=== PATIENT | male | born 1945 | race Caucasian/White ===

== ENCOUNTER → 2024-05-24 09:43 | Outpatient (CLI) | payer MEDICARE, SELFPAY | PROVIDERS: Visit Provider Physician Assistant | DX: E11.621 Type 2 diabetes mellitus with foot ulcer (principal); L97.522 Non-pressure chronic ulcer of other part of left foot with fat layer exposed; L97.422 Non-pressure chronic ulcer of left heel and midfoot with fat layer exposed; L98.8 Other specified disorders of the skin and subcutaneous tissue; R60.0 Localized edema; M79.672 Pain in left foot; L03.116 Cellulitis of left lower limb; Z79.2 Long term (current) use of antibiotics | CPT/HCPCS: 11042; 11045; 87070; 87077; 87147; 87186; 87205; 99204; 99214 ==

== ENCOUNTER → 2024-05-29 14:47 | Outpatient (CLI) | payer MEDICARE, SELFPAY ==
--- NOTE | 2024-05-29 14:48 | DI.US.S_ITS ---
PROCEDURE: US ARTERIAL DUPLEX LE LT INDICATIONS: LLE DIABETIC ULCERS TECHNIQUE: Color and pulse Doppler interrogation was performed of the left lower extremity arterial system, with image documentation. COMPARISON: None. FINDINGS: Common femoral artery: 82 cm/sec, with triphasic flow. Deep femoral artery: 65 cm/sec, with triphasic flow. Proximal superficial femoral artery: 57 cm/sec, with biphasic flow. Mid superficial femoral artery: 54 cm/sec, with triphasic flow. Distal superficial femoral artery: 20 cm/sec, with monophasic flow. Popliteal artery: Entirety of visualized popliteal artery is occluded without color flow.. Posterior tibial artery: Minimal flow within posterior tibial artery. Anterior tibial artery/dorsalis pedis: 16 cm/sec, with monophasic flow. Hung-scale imaging description: Complete occlusion of the popliteal artery. Mild degree of plaque involving the mid to distal left SFA. IMPRESSION: 1. 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 2. Minimal flow within posterior tibial artery and dampened flow within the anterior tibial artery distal to popliteal artery occlusion. Dictated by: Carlos Noble M.D. on 05/29/2024 at 16:25 Approved by: Carlos Noble M.D. on 05/29/2024 at 16:30
== END ==
LOC: US 14:48
PROVIDERS: PCP Internal Medicine; Referring Provider Physician Assistant; Visit Provider Physician Assistant
DX: E11.621 Type 2 diabetes mellitus with foot ulcer (principal); L97.429 Non-pressure chronic ulcer of left heel and midfoot with unspecified severity; L97.529 Non-pressure chronic ulcer of other part of left foot with unspecified severity; I70.92 Chronic total occlusion of artery of the extremities
CPT/HCPCS: 93926

== ENCOUNTER → 2024-05-31 10:00 | Outpatient (CLI) | payer MEDICARE, SELFPAY | LOC: WC 10:04 | PROVIDERS: PCP Internal Medicine; Visit Provider Physician Assistant | DX: E11.621 Type 2 diabetes mellitus with foot ulcer (principal); L97.522 Non-pressure chronic ulcer of other part of left foot with fat layer exposed; L97.422 Non-pressure chronic ulcer of left heel and midfoot with fat layer exposed; B95.62 Methicillin resistant Staphylococcus aureus infection as the cause of diseases classified elsewhere; M79.672 Pain in left foot; Z79.2 Long term (current) use of antibiotics | CPT/HCPCS: 99213; 99214 ==

== ENCOUNTER → 2024-06-21 13:45 | Outpatient (CLI) | payer MEDICARE, SELFPAY | LOC: WC 13:46 | PROVIDERS: PCP Internal Medicine; Visit Provider Physician Assistant | DX: E11.621 Type 2 diabetes mellitus with foot ulcer (principal); L97.522 Non-pressure chronic ulcer of other part of left foot with fat layer exposed; L97.422 Non-pressure chronic ulcer of left heel and midfoot with fat layer exposed; L53.9 Erythematous condition, unspecified; R23.4 Changes in skin texture | CPT/HCPCS: 99213 ==

== ENCOUNTER → 2024-07-01 13:05 | Outpatient (CLI) | payer MEDICARE, SELFPAY | LOC: WC 13:06 | PROVIDERS: PCP Internal Medicine; Visit Provider Surgery | DX: E11.42 Type 2 diabetes mellitus with diabetic polyneuropathy (principal); E11.621 Type 2 diabetes mellitus with foot ulcer; L97.522 Non-pressure chronic ulcer of other part of left foot with fat layer exposed; L97.422 Non-pressure chronic ulcer of left heel and midfoot with fat layer exposed; L98.8 Other specified disorders of the skin and subcutaneous tissue; I73.9 Peripheral vascular disease, unspecified | CPT/HCPCS: 11042; 11045; 99213 ==

== ENCOUNTER → 2024-07-12 13:04 | Outpatient (CLI) | payer MEDICARE, SELFPAY | PROVIDERS: PCP Internal Medicine; Visit Provider Physician Assistant | DX: E11.621 Type 2 diabetes mellitus with foot ulcer (principal); L97.522 Non-pressure chronic ulcer of other part of left foot with fat layer exposed; L98.8 Other specified disorders of the skin and subcutaneous tissue; R23.4 Changes in skin texture; I73.9 Peripheral vascular disease, unspecified | CPT/HCPCS: 97597; 99213 ==

== ENCOUNTER → 2024-07-19 14:01 | Outpatient (CLI) | payer MEDICARE, SELFPAY | PROVIDERS: PCP Internal Medicine; Visit Provider Physician Assistant | DX: E11.621 Type 2 diabetes mellitus with foot ulcer (principal); L97.522 Non-pressure chronic ulcer of other part of left foot with fat layer exposed; L97.422 Non-pressure chronic ulcer of left heel and midfoot with fat layer exposed; L98.8 Other specified disorders of the skin and subcutaneous tissue; R23.4 Changes in skin texture; I73.9 Peripheral vascular disease, unspecified | CPT/HCPCS: 99213; 99214 ==

== ENCOUNTER → 2024-07-26 13:50 | Outpatient (CLI) | payer MEDICARE, SELFPAY | PROVIDERS: PCP Internal Medicine; Visit Provider Physician Assistant | DX: E11.621 Type 2 diabetes mellitus with foot ulcer (principal); L97.522 Non-pressure chronic ulcer of other part of left foot with fat layer exposed; R23.4 Changes in skin texture; L97.422 Non-pressure chronic ulcer of left heel and midfoot with fat layer exposed; L98.8 Other specified disorders of the skin and subcutaneous tissue | CPT/HCPCS: 97597; 99213 ==

== ENCOUNTER → 2024-08-02 14:07 | Outpatient (CLI) | payer MEDICARE, SELFPAY | PROVIDERS: PCP Internal Medicine; Visit Provider Physician Assistant | DX: E11.621 Type 2 diabetes mellitus with foot ulcer (principal); L97.522 Non-pressure chronic ulcer of other part of left foot with fat layer exposed; L97.422 Non-pressure chronic ulcer of left heel and midfoot with fat layer exposed; L98.8 Other specified disorders of the skin and subcutaneous tissue; R23.4 Changes in skin texture; I73.9 Peripheral vascular disease, unspecified; I10 Essential (primary) hypertension | CPT/HCPCS: 11042 ==

== ENCOUNTER → 2024-08-16 14:19 | Outpatient (CLI) | payer MEDICARE, SELFPAY | PROVIDERS: PCP Internal Medicine; Visit Provider Physician Assistant | DX: E11.621 Type 2 diabetes mellitus with foot ulcer (principal); L97.522 Non-pressure chronic ulcer of other part of left foot with fat layer exposed; L97.422 Non-pressure chronic ulcer of left heel and midfoot with fat layer exposed; L98.8 Other specified disorders of the skin and subcutaneous tissue; I10 Essential (primary) hypertension; I73.9 Peripheral vascular disease, unspecified | CPT/HCPCS: 11042; 87070; 87075; 87077; 87147; 87186; 87205; 99213 ==

== ENCOUNTER → 2024-08-30 13:11 | Outpatient (CLI) | payer MEDICARE, SELFPAY | PROVIDERS: PCP Internal Medicine; Visit Provider Physician Assistant | DX: E11.621 Type 2 diabetes mellitus with foot ulcer (principal); L97.522 Non-pressure chronic ulcer of other part of left foot with fat layer exposed; L97.422 Non-pressure chronic ulcer of left heel and midfoot with fat layer exposed; L98.8 Other specified disorders of the skin and subcutaneous tissue; I73.9 Peripheral vascular disease, unspecified | CPT/HCPCS: 11042; 99212; 99214 ==

== ENCOUNTER → 2024-09-06 14:14 | Outpatient (CLI) | payer MEDICARE, SELFPAY | PROVIDERS: PCP Internal Medicine; Visit Provider Physician Assistant | DX: E11.621 Type 2 diabetes mellitus with foot ulcer (principal); L97.522 Non-pressure chronic ulcer of other part of left foot with fat layer exposed; L97.422 Non-pressure chronic ulcer of left heel and midfoot with fat layer exposed; E11.622 Type 2 diabetes mellitus with other skin ulcer; L97.821 Non-pressure chronic ulcer of other part of left lower leg limited to breakdown of skin; I73.9 Peripheral vascular disease, unspecified | CPT/HCPCS: 11042; 99214 ==

== ENCOUNTER → 2024-09-20 12:40 | Outpatient (CLI) | payer MEDICARE, SELFPAY | PROVIDERS: PCP Internal Medicine; Visit Provider Physician Assistant | DX: E11.621 Type 2 diabetes mellitus with foot ulcer (principal); L97.522 Non-pressure chronic ulcer of other part of left foot with fat layer exposed; L97.422 Non-pressure chronic ulcer of left heel and midfoot with fat layer exposed; E11.622 Type 2 diabetes mellitus with other skin ulcer; L97.822 Non-pressure chronic ulcer of other part of left lower leg with fat layer exposed | CPT/HCPCS: 11042; 99214 ==

== ENCOUNTER → 2024-10-04 11:15 | Outpatient (CLI) | payer MEDICARE, SELFPAY | LOC: WC 11:16 | PROVIDERS: PCP Internal Medicine; Visit Provider Physician Assistant | DX: E11.621 Type 2 diabetes mellitus with foot ulcer (principal); E11.622 Type 2 diabetes mellitus with other skin ulcer; L97.522 Non-pressure chronic ulcer of other part of left foot with fat layer exposed; L97.822 Non-pressure chronic ulcer of other part of left lower leg with fat layer exposed; E11.40 Type 2 diabetes mellitus with diabetic neuropathy, unspecified; E11.51 Type 2 diabetes mellitus with diabetic peripheral angiopathy without gangrene; L53.8 Other specified erythematous conditions; R60.0 Localized edema; Z86.14 Personal history of Methicillin resistant Staphylococcus aureus infection | CPT/HCPCS: 11042; 87070; 87075; 87077; 87147; 87186; 87205 ==

== ENCOUNTER → 2024-10-04 12:13 | Outpatient (CLI) | payer MEDICARE, SELFPAY ==
--- NOTE | 2024-10-04 12:14 | DI.RAD.S_ITS ---
PROCEDURE: XR FOOT LT MIN 3V INDICATIONS: possilbe osteomylitis TECHNIQUE: 3 views of the foot were acquired. COMPARISON: None. FINDINGS: Bones: No fractures or dislocations. No suspicious bony lesions. Calcaneal enthesopathy. Soft tissues: No tibiotalar joint effusion. Achilles tendon appears normal. Vascular calcifications indicate atherosclerosis. IMPRESSION: Although no bony erosions are identified, plain film radiography is relatively insensitive in the acute phases of osteomyelitis and may not demonstrate radiographic changes for 15 days. If acute osteomyelitis is of clinical concern, nuclear medicine regional bone scan or MRI is recommended. Dictated by: Fer Law [facility] Interpreted: Luz Marina Stewart MD on 10/05/2024 at 7:57 Approved by: Luz Marina Stewart M.D. on 10/11/2024 at 17:06
== END ==
PROVIDERS: PCP Internal Medicine; Referring Provider Physician Assistant; Visit Provider Physician Assistant
DX: E11.621 Type 2 diabetes mellitus with foot ulcer (principal); L97.529 Non-pressure chronic ulcer of other part of left foot with unspecified severity; M77.32 Calcaneal spur, left foot
CPT/HCPCS: 73630; 87070; 87077; 87147; 87186; 87205

== ENCOUNTER → 2024-10-11 14:49 | Outpatient (CLI) | payer MEDICARE, SELFPAY | LOC: WC 14:51 | PROVIDERS: PCP Internal Medicine; Visit Provider Physician Assistant | DX: E11.621 Type 2 diabetes mellitus with foot ulcer (principal); E11.622 Type 2 diabetes mellitus with other skin ulcer; L97.522 Non-pressure chronic ulcer of other part of left foot with fat layer exposed; L97.822 Non-pressure chronic ulcer of other part of left lower leg with fat layer exposed; E11.40 Type 2 diabetes mellitus with diabetic neuropathy, unspecified; E11.51 Type 2 diabetes mellitus with diabetic peripheral angiopathy without gangrene; L53.8 Other specified erythematous conditions; R60.0 Localized edema; Z86.14 Personal history of Methicillin resistant Staphylococcus aureus infection | CPT/HCPCS: 11042; 97597; 99214 ==

== ENCOUNTER → 2024-10-18 14:50 | Outpatient (CLI) | payer MEDICARE, SELFPAY | LOC: WC 14:51 | PROVIDERS: PCP Internal Medicine; Visit Provider Physician Assistant | DX: E11.621 Type 2 diabetes mellitus with foot ulcer (principal); L97.522 Non-pressure chronic ulcer of other part of left foot with fat layer exposed; I96 Gangrene, not elsewhere classified; Z86.14 Personal history of Methicillin resistant Staphylococcus aureus infection; I73.9 Peripheral vascular disease, unspecified; R60.0 Localized edema | CPT/HCPCS: 11042; 99213 ==

== ENCOUNTER → 2024-10-25 13:13 | Outpatient (CLI) | payer MEDICARE, SELFPAY | LOC: WC 13:13 | PROVIDERS: PCP Internal Medicine; Visit Provider Physician Assistant | DX: E11.621 Type 2 diabetes mellitus with foot ulcer (principal); L97.528 Non-pressure chronic ulcer of other part of left foot with other specified severity; R60.0 Localized edema; L98.8 Other specified disorders of the skin and subcutaneous tissue; I10 Essential (primary) hypertension | CPT/HCPCS: 11043; 99213 ==

== ENCOUNTER → 2024-11-08 13:14 | Outpatient (CLI) | payer MEDICARE, SELFPAY ==
--- NOTE | 2024-11-08 | OV.WND_ITS ---
PROGRESS NOTE DETAILS PATIENT NAME: MICHELET NEFF PATIENT NUMBER: [id number] CLINICIAN: MEREDITH RAMOS RN PATIENT DATE OF : 1945 PHYSICIAN / INSURANCE SALES REPRESENTATIVE: EDI GERARD PA-C PATIENT SUBJECTIVE CHIEF COMPLAINT THIS INFORMATION WAS OBTAINED FROM THE PATIENT. I HAVEN'T NOTICE AN INCREASE IN DRAINAGE (FROM THE WOUND.) GENERAL NOTES DIABETIC ULCERS ON LEFT FOOT ALLERGIES NO KNOWN ALLERGIES HPI THIS INFORMATION WAS OBTAINED FROM THE PATIENT. LOCATION: LEFT 2ND TOE DURATION: 03/23/24 CONTEXT: DFU THE PATIENT IS A 79 YEAR OLD MALE WITH PMH OF DMT2, HTN, VASCULAR DISEASE, NEUROPATHY PRESENTS FOR ULCER ON LEFT 2ND TOE. ALL OTHER WOUNDS TO THE LEFT FOOT ARE NOW HEALED. THE PATIENT ORIGINALLY HAD AN ARTERIAL US SHOWING FULL BLOCKAGE TO POPLITEAL ARTERY AND REDUCED FLOW TO TIBIAL ARTERY. ON June THE PATIENT UNDERWENT VASCULAR INTERVENTION WITH A GRAFT AND STENT AND WAS DISCHARGED HOME ON [place]. HE UNDERWENT ANOTHER REVASCULARIZATION IN OCTOBER. THE PATIENT HAS BEEN RECEIVING DRESSING CHANGES WITH HYDROFERA BLUE TO HIS WOUNDS. HE IS NOT CURRENTLY ON ANTIBIOTIC THERAPY. HE DENIES FEVERS OR CHILLS. HE PREVIOUSLY HAD AN XRAY DONE THAT REPORTEDLY SHOWED NO SIGN OF OSTEOMYELITIS. HE WANTS TO DELAY TREATMENT WITH HBO AND AMPUTATION TO ASSESS RESPONSE TO RECENT REVASCULARIZATION FIRST. ON EXAM TODAY, WOUND TO 2ND TOE IS IMPROVING. ALL OTHER WOUNDS REMAIN HEALED. LABS: 10/05/24: CULTURE STAPH AUREUS, RX KEFLEX 10/04/24: XRAY 08/18/24: CULTURE MODERATE STAPH AUREUS, RX KEFLEX 05/29/24: ARTERIAL US COMPLETE OCCLUSION POPLITEAL ARTERY, MINIMAL FLOW WITHIN POSTERIOR TIBIAL ARTERY AND DAMPENED FLOW WITHIN THE ANTERIOR TIBIAL ARTERY DISTAL TO POPLITEAL ARTERY OCCLUSION 05/24/24: CULTURE MRSA, RX DOXYCYCLINE 05/24/24: MADHURI LEFT AND RIGHT PAD 05/10/24: XRAY NEGATIVE FOR OSTEO 05/10/24: A1C 7.4 FAMILY HISTORY THIS INFORMATION WAS OBTAINED FROM THE PATIENT. SOCIAL HISTORY MICHELET NEFF [id number] 1945 THIS INFORMATION WAS OBTAINED FROM THE PATIENT. NEVER SMOKER ALCOHOL USE: OCCASIONAL CAFFEINE USE: 1 CUP/DAY CHILDREN LIVES IN: OWN HOME MARITAL STATUS: RETIRED: [employer] MEDICAL HISTORY THIS INFORMATION WAS OBTAINED FROM THE CHART, PATIENT. PATIENT HAS A MEDICAL HISTORY OF: HYPERTENSION GASTRO ESOPH. 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 YES? COMPLETE ALL QUESTIONS.: NO SURGICAL HISTORY THIS INFORMATION WAS OBTAINED FROM THE PATIENT. PATIENT HAS A SURGICAL HISTORY OF: VASCULAR PROCEDURE- (2023) TURP- (2009) REVIEW OF SYSTEMS (ROS) THIS INFORMATION WAS OBTAINED FROM THE PATIENT. COMPLAINTS AND SYMPTOMS PATIENT DENIES COM PLAINTS OR SY M PTOM S RELATED TO: GENERAL NOTES OBJECTIVE MICHELET NEFF [id number] 1945 VITALS HEIGHT/LENGTH: 67 IN (170.18 CM), WEIGHT: 168.2 LBS (76.45 KGS), BMI: 26.3, TEMPERATURE: 98.9 ?F (37.17 ?C), PULSE: 89 BPM, RESPIRATORY RATE: 16 BREATHS/MIN, BLOOD PRESSURE: 154/100 MMHG, PULSE OXIMETRY: 98 %. GENERAL NOTES BLOOD GLUCOSE PER PT :167 PHYSICAL EXAM CONSTITUTIONAL: GENERALIZED WEAKNESS. IN NO APPARENT DISTRESS. GOOD ATTENTION TO HYGIENE AND BODY HABITS. ALERT AND ORIENTED X 3. WELL NOURISHED. VITAL SIGNS REVIEWED AND NOTED. HYPERTENSIVE. PULSE RATE AND RHYTHM REGULAR. AFEBRILE. WEIGHT WNL. WELL DEVELOPED, WELL NOURISHED, AND IN NO ACUTE DISTRESS. ALERT AND ORIENTED X3. AMBULATES AND IS ABLE TO CHANGE POSITION WITHOUT ASSISTANCE. ALERT AND ORIENTED X 3. RESPIRATORY: EVEN RESPIRATIONS WITHOUT USE OF ACCESSORY MUSCLES. NO INTERCOASTAL RETRACTIONS NOTED. EVEN AND NON LABORED RESPIRATION. CARDIOVASCULAR: SEE LOWER EXTREMITY ASSESSMENT WHEN APPLICABLE. THERE IS NO PERIPHERAL EDEMA, CYANOSIS OR PALLOR. EXTREMITIES ARE WARM AND WELL PERFUSED. CAPILLARY REFILL IS LESS THAN 2 SECONDS. INTEGUMENTARY (HAIR, SKIN): SEE WOUND DESCRIPTION. NEUROLOGICAL: DECREASED LOWER EXTREMITY SENSATION. PSYCHIATRIC: ORIENTATION TO TIME, PLACE AND PERSON: NORMAL AFFECT WITH NORMAL THOUGHT PATTERN. MOOD AND AFFECT: NORMAL AFFECT WITH NORMAL THOUGHT PATTERN. LOWER EXTREMITY ASSESSMENT EDEMA ASSESSMENT: LEFT EXTREMITY: EDEMA IS NOT PRESENT COMPRESSION DEVICE IN USE: NO RIGHT EXTREMITY: EDEMA IS NOT PRESENT COMPRESSION DEVICE IN USE: NO VASCULAR ASSESSMENT LEFT EXTREMITY COLORS, HAIR GROWTH, AND CONDITIONS: EXTREMITY COLOR: PIGMENTED HAIR GROWTH ON EXTREMITY: NO TEMPERATURE OF EXTREMITY: WARM CAPILARY REFILL: < 3 SECONDS ERYTHEMA: YES RIGHT EXTREMITY COLORS, HAIR GROWTH, AND CONDITIONS: EXTREMITY COLOR: WNL HAIR GROWTH ON EXTREMITY: NO TEMPERATURE OF EXTREMITY: WARM CAPILARY REFILL: < 3 SECONDS ERYTHEMA: NO WOUND ASSESSMENT(S) WOUND #1 LEFT TOE - SECOND IS A CHRONIC COBB GRADE 3 DIABETIC ULCER ACQUIRED ON 03/23/2024 AND HAS RECEIVED A STATUS OF NOT HEALED. INITIAL WOUND ENCOUNTER MEASUREMENTS ARE 0.5CM LENGTH X 0.4CM WIDTH X 0.1 CM DEPTH, WITH AN AREA OF 0.2 SQ CM AND A VOLUME OF 0.02 CUBIC CM.INITIAL WOUND ENCOUNTER PREVIOUS MEASUREMENTS FROM 10/25/2024 ARE 0.5CM LENGTH X 0.7CM WIDTH X 0.1CM DEPTH, WITH AN AREA OF 0.35 SQ CM AND A VOLUME OF 0.035 CUBIC CM. NECROTIC TENDON AND ADIPOSE ARE EXPOSED. NO TUNNELING HAS BEEN NOTED. NO SINUS TRACT HAS BEEN NOTED. NO UNDERMINING HAS BEEN NOTED. THERE IS A SMALL AMOUNT OF SEROSANGUINEOUS DRAINAGE NOTED WHICH HAS NO ODOR. THE PATIENT REPORTS A WOUND PAIN OF LEVEL 0/10. THE WOUND MARGIN IS ATTACHED WOUND BED HAS NO, GRANULATION, YES SLOUGH, YES ESCHAR, NO EPITHELIALIZATION. MICHELET NEFF [id number] 1945 THE PERIWOUND SKIN EXHIBITED EDEMA. THE PERIWOUND SKIN DID NOT EXHIBIT BRAWNY INDURATION, EXCORIATION, INDURATION, CALLUS, CREPITUS, FLUCTUANCE, RASH, MACERATION AND ERYTHEMA. THE PERIWOUND SKIN WAS MOIST. THE PERIWOUND SKIN WAS NOT FRIABLE AND DRY/SCALY. THE TEMPERATURE OF THE PERIWOUND SKIN IS WNL. PERIWOUND SKIN DOES NOT EXHIBIT SIGNS OR SYMPTOMS OF INFECTION. LOCAL PULSE IS DOPPLER. ADDITIONAL INFORMATION MADHURI/VASCULAR COMPLETED?: VASCULAR PROCEDURE DONE 10/21/24. ASSESSMENT ACTIVE PROBLEMS ICD-10 (ENCOUNTER DIAGNOSIS) E11.621 - TYPE 2 DIABETES MELLITUS WITH FOOT ULCER (ENCOUNTER DIAGNOSIS) L97.522 - NON-PRESSURE CHRONIC ULCER OF OTHER PART OF LEFT FOOT WITH FAT LAYER EXPOSED (ENCOUNTER DIAGNOSIS) Z86.14 - PERSONAL HISTORY OF METHICILLIN RESISTANT STAPHYLOCOCCUS AUREUS INFECTION (ENCOUNTER DIAGNOSIS) I73.9 - PERIPHERAL VASCULAR DISEASE, UNSPECIFIED PROCEDURES WOUND #1 WOUND #1 (DIABETIC ULCER) IS LOCATED ON THE LEFT TOE - SECOND. A SKIN/SUBCUTANEOUS TISSUE LEVEL SURGICAL DEBRIDEMENT WITH A TOTAL AREA DEBRIDED OF 0.2 SQ CM. WAS PERFORMED BY EDI GERARD PA-C. SUBCUTANEOUS WAS REMOVED ALONG WITH DEVITALIZED TISSUE: BIOFILM, EXUDATE AND SLOUGH. THE FOLLOWING INSTRUMENT(S) WERE USED: CURETTE. PAIN CONTROL WAS ACHIEVED USING EMLA LIDOCAINE/PRILOCAINE 2.5%/2.5%. A TIME OUT WAS CONDUCTED PRIOR TO THE START OF THE PROCEDURE. A MINIMAL AMOUNT OF BLEEDING WAS CONTROLLED WITH PRESSURE. THE PROCEDURE WAS TOLERATED WELL WITH A PAIN LEVEL OF 0 THROUGHOUT AND A PAIN LEVEL OF 0 FOLLOWING THE PROCEDURE. POST DEBRIDEMENT MEASUREMENTS: 0.5CM LENGTH X 0.4CM WIDTH X 0.2CM DEPTH; WITH AN AREA OF 0.2 SQ CM AND A VOLUME OF 0.04 CUBIC CM. ADDITIONAL INFORMATION MUSCLE FASCIA OR BONE REMOVED AND SENT TO PATHOLOGY?: NO PLAN WOUND ORDERS: WOUND #1 LEFT TOE - SECOND HAND HYGIENE HAND HYGIENE - WASH HANDS BEFORE AND AFTER WOUND CARE. CALL THE WOUND CENTER AT [phone] IF YOU HAVE SIGNS OR SYMPTOMS OF INFECTION, FEVER CHILLS OR SHAKES, INCREASED DRAINAGE, INCREASED ODOR OR UNUSUAL REDNESS. AFTER WOUND CENTER HOURS PLEASE NOTIFY YOUR PCP OR GO TO THE EMERGENCY ROOM. CLEANSER CLEANSE WOUND WITH NORMAL SALINE CLEANSE WOUND AND MONIKA WOUND WITH A NON-CYTOTOXIC WOUND CLEANSER. - VASHE. PROCEDURE / ANESTHETIC 5% TOPICAL LIDOCAINE TO WOUND BED PRIOR TO PROCEDURE, IN CLINIC ONLY. DRESSING ORDERS APPLY DRESSING(S) AND SECURE WITH: - CURAD OIL EMULSION GAUZE, THEN HYDROFERA BLUE, SECURED WITH TAPE. DRESSING CHANGE FREQUENCY CHANGE DRESSING EVERY OTHER DAY. MICHELET NEFF [id number] 1945 ADDITIONAL ORDERS: OFF-LOADING / PRESSURE RELIEF USE/WEAR WHEN WALKING: - DIABETIC SHOES. OTHER ORDER: - PREVENT PRESSURE FROM DORSAL FOOT AND DORSAL TOE. DIETARY TAKE VITAMIN C 1000MG BY MOUTH DAILY. TAKE ZINC 25MG BY MOUTH DAILY. INCREASE THE PROTEIN IN YOUR DIET. FOLLOW-UP APPOINTMENTS RETURN APPOINTMENT 2 WEEKS SCRIBING ATTESTATION I ATTEST, THE NURSE, THAT I SCRIBED THESE ORDERS FOR THE WOUND CARE PROVIDER. PROVIDER REVIEW AND ATTESTATION: REVIEWED HOSPITAL RECORDS. DISCUSSED THE PLAN OF CARE @ BEDSIDE WITH - PATIENT AND I AGREE AND ATTEST TO THE ABOVE INFORMATION PROVIDED FROM OTHER LICENSED PROFESSIONALS. PLAN OF CARE: 01. ENSURE/ESTABLISH OPTIMAL BLOOD FLOW : - COMPLETE LOWER EXTREMITY ASSESSMENT STATUS: CONTINUED DATE: 11/08/2024 - PERFORM NON-INVASIVE VASCULAR TESTING (I.E. MADHURI) AND DOCUMENT FINDINGS. CONSIDER REPEATING WHEN WOUND HEALING <40% AFTER 30 DAYS OF WOUND CARE. STATUS: COMPLETED DATE: 05/29/2024 - ORDER VASCULAR CONSULT FOR EVALUATION/TREATMENT AND/OR NON-INVASIVE VASCULAR TESTING. - PROVIDENCE VASCULAR ARTERIAL VASCULAR PROCEDURE. STATUS: COMPLETED DATE: 10/21/2024 02. ASSESS FOR/TREAT INFECTION : - EVALUATE FOR SIGNS AND SYMPTOMS OF INFECTION AND DOCUMENT FINDINGS. STATUS: CONTINUED DATE: 11/08/2024 03. DEBRIDE WEEKLY OR MORE OFTEN PRN : - EVALUATE PATIENT IN CENTER WEEKLY TO ASSESS WOUND BED AND MARGINS FOR NEED FOR DEBRIDEMENT. STATUS: CONTINUED DATE: 11/08/2024 - DEBRIDEMENT BY ANY METHOD TO REMOVE DEVITALIZED/NECROTIC TISSUE TO PROMOTE HEALING AND PREVENT FURTHER COMPLICATIONS. GOAL IS TO STIMULATE AND/OR MAINTAIN ACUTE PHASE OF WOUND HEALING BY REDUCING BACTERIAL BURDEN AND DEVITALIZED/NON-VIABLE TISSUE. STATUS: CONTINUED DATE: 11/08/2024 05. OFFLOADING PLAN : - EVALUATE PLAN FOR OFFLOADING STATUS: CONTINUED DATE: 11/08/2024 - ADVISE PATIENT TO OFFLOAD THE FOOT ULCER. (I.E. HALF SHOE, SURGICAL SHOE, INSERT, CUSTOM SHOE, FELT AND FOAM, CAM WALKER, MULTIPODUS SPLINT, TOTAL CONTACT CAST, BI-VALVE CAST, POSTERIOR SPLINT). - POST-OP SHOE GIVEN, FOOT DEFENDER ORDERED, EHOB GIVEN STATUS: CONTINUED DATE: 11/08/2024 07. DRESSING SELECTION : - EVALUATE FOR DRESSING-RELATED FACTORS, SUCH AVAILABILITY, WEAR TIME, ADAPTABILITY AND USE TO BETTER OPTIMIZE WOUND HEALING AND PATIENT COMPLIANCE. STATUS: CONTINUED DATE: 11/08/2024 09. FALL PREVENTION : - COMPLETE FALL ASSESSMENT. STATUS: CONTINUED DATE: 11/08/2024 10. PAIN MANAGEMENT : - COMPLETE PAIN ASSESSMENT MICHELET NEFF [id number] 1945 STATUS: CONTINUED DATE: 11/08/2024 11. MEASURABLE GOALS FOR WOUND HEALING AND/OR HYPERBARIC OXYGEN THERAPY : - DECREASE PAIN STATUS: CONTINUED DATE: 11/08/2024 - DECREASE WOUND DIMENSIONS STATUS: CONTINUED DATE: 11/08/2024 - WOUND CLOSURE STATUS: CONTINUED DATE: 11/08/2024 12. DURATION/FREQUENCY OF WOUND CARE VISITS : - 2X MONTHLY FOR NEXT 30 DAYS - IN 2 WEEKS. STATUS: CONTINUED DATE: 11/08/2024 DOING WELL CONTINUE WITH CURAD GAUZE, HYDROFERA BLUE RECHECK 2 WEEKS, PER PATIENT PREFERENCE ELECTRONIC SIGNATURE(S) SIGNED BY: DATE: EDI GERARD PA-C 11/11/2024 07:33:39 (PT) ENTERED BY: EDI GERARD PA-C ON 11/11/2024 07:33:28 (PT) MICHELET NEFF [id number] 1945
== END ==
LOC: WC 13:17
PROVIDERS: PCP Internal Medicine; Referring Provider Internal Medicine; Visit Provider Physician Assistant
DX: E11.621 Type 2 diabetes mellitus with foot ulcer (principal); L97.522 Non-pressure chronic ulcer of other part of left foot with fat layer exposed; I96 Gangrene, not elsewhere classified; I73.9 Peripheral vascular disease, unspecified
CPT/HCPCS: 11042; 99213

== ENCOUNTER → 2024-11-22 13:06 | Outpatient (CLI) | payer MEDICARE, SELFPAY | PROVIDERS: PCP Internal Medicine; Visit Provider Physician Assistant | DX: E11.621 Type 2 diabetes mellitus with foot ulcer (principal); L97.522 Non-pressure chronic ulcer of other part of left foot with fat layer exposed; I73.9 Peripheral vascular disease, unspecified; R60.0 Localized edema; E11.40 Type 2 diabetes mellitus with diabetic neuropathy, unspecified; Z86.14 Personal history of Methicillin resistant Staphylococcus aureus infection | CPT/HCPCS: 11042; 99213 ==

== ENCOUNTER → 2024-12-03 16:03 | Outpatient (CLI) | payer MEDICARE, SELFPAY ==
--- NOTE | 2024-12-03 | OV.WND_ITS ---
PROGRESS NOTE DETAILS PATIENT NAME: MICHELET NEFF PATIENT NUMBER: [id number] CLINICIAN: GEETA HUGO R.N. PATIENT DATE OF : 1945 PHYSICIAN / PHOTOGRAPHIC PROCESS SCREEN MAKER: DANIEL TARIQ PATIENT SUBJECTIVE CHIEF COMPLAINT THIS INFORMATION WAS OBTAINED FROM THE PATIENT. I HAVEN'T NOTICED ANY DRAINAGE, I LEFT THE DRESSING OFF TODAY. GENERAL NOTES DIABETIC ULCER ON LEFT FOOT. ALLERGIES NO KNOWN ALLERGIES HPI THIS INFORMATION WAS OBTAINED FROM THE PATIENT. THE FOLLOWING HPI ELEMENTS WERE DOCUMENTED FOR THE PATIENT'S WOUND: LOCATION: LEFT 2ND TOE DURATION: 03/23/24 CONTEXT: DFU THE PATIENT IS A 79 YEAR OLD MALE WITH DMT2, HTN, VASCULAR DISEASE, NEUROPATHY RETURNS TODAY FOR FOLLOW UP OF ULCER ON LEFT 2ND TOE. ALL OTHER ULCERS ON THE LEFT FOOT REMAIN HEALED. THE PATIENT ORIGINALLY HAD AN ARTERIAL US SHOWING FULL BLOCKAGE TO POPLITEAL ARTERY AND REDUCED FLOW TO TIBIAL ARTERY. ON June THE PATIENT UNDERWENT VASCULAR INTERVENTION WITH A GRAFT AND STENT AND WAS DISCHARGED HOME ON X[place]EL[place]. HE UNDERWENT ANOTHER REVASCULARIZATION IN OCTOBER. THE PATIENT HAS BEEN RECEIVING DRESSING CHANGES WITH HYDROFERA BLUE. HE IS NOT CURRENTLY ON ANTIBIOTIC THERAPY. HE DENIES FEVERS OR CHILLS. HE PREVIOUSLY HAD AN XRAY DONE THAT REPORTEDLY SHOWED NO SIGN OF OSTEOMYELITIS. HE WANTS TO DELAY TREATMENT WITH HBO AND AMPUTATION TO ASSESS RESPONSE TO RECENT REVASCULARIZATION FIRST. ON EXAM TODAY THE ULCER ON THE DORSUM OF THE LEFT 2ND TOE APPEARS TO BE STALLED AND EXTENDS TO BONE. ALL OTHER ULCERS REMAIN HEALED. LABS: 10/05/24: CULTURE STAPH AUREUS, RX KEFLEX 10/04/24: XRAY NEGATIVE FOR OSTEOMYELITIS 08/18/24: CULTURE MODERATE STAPH AUREUS, RX KEFLEX 05/29/24: ARTERIAL US COMPLETE OCCLUSION POPLITEAL ARTERY, MINIMAL FLOW WITHIN POSTERIOR TIBIAL ARTERY AND DAMPENED FLOW WITHIN THE ANTERIOR TIBIAL ARTERY DISTAL TO POPLITEAL ARTERY OCCLUSION 05/24/24: CULTURE MRSA, RX DOXYCYCLINE 05/24/24: MADHURI LEFT AND RIGHT PAD 05/10/24: XRAY NEGATIVE FOR OSTEO 05/10/24: A1C 7.4 FAMILY HISTORY THIS INFORMATION WAS OBTAINED FROM THE PATIENT. MICHELET NEFF [id number] 1945 SOCIAL HISTORY THIS INFORMATION WAS OBTAINED FROM THE PATIENT. NEVER SMOKER ALCOHOL USE: OCCASIONAL CAFFEINE USE: 1 CUP/DAY CHILDREN LIVES IN: OWN HOME MARITAL STATUS: RETIRED: [employer] WORK[employer] MEDICAL HISTORY THIS INFORMATION WAS OBTAINED FROM THE CHART, PATIENT. PATIENT HAS A MEDICAL HISTORY OF: HYPERTENSION GASTRO ESOPH. 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 YES? COMPLETE ALL QUESTIONS.: NO SURGICAL HISTORY THIS INFORMATION WAS OBTAINED FROM THE PATIENT. PATIENT HAS A SURGICAL HISTORY OF: VASCULAR PROCEDURE- (2023) TURP- (2009) REVIEW OF SYSTEMS (ROS) THIS INFORMATION WAS OBTAINED FROM THE PATIENT. COMPLAINTS AND SYMPTOMS PATIENT COM PLAINS OF: CO-MORBID CONDITIONS: DIABETES, NEUROPATHY , PERIPHERAL ARTERIAL DISEASE PRIOR WOUND HISTORY: DRAINAGE PATIENT DENIES COM PLAINTS OR SY M PTOM S RELATED TO: MICHELET NEFF [id number] 1945 GENERAL NOTES CARDIOVASCULAR (CENTRAL): CHEST PAIN, DYSPNEA ON EXERTION CONSTITUTIONAL SYMPTOMS (GENERAL HEALTH): CHILLS, FEVER, LOSS OF APPETITE PRIOR WOUND HISTORY: BLEEDING, ERYTHEMA, MALODOR, PAIN RESPIRATORY: COUGH, SHORTNESS OF BREATH OBJECTIVE VITALS HEIGHT/LENGTH: 67 IN (170.18 CM), WEIGHT: 168.2 LBS (76.45 KGS), BMI: 26.3, TEMPERATURE: 97.4 ?F (36.33 ?C), PULSE: 94 BPM, RESPIRATORY RATE: 16 BREATHS/MIN, BLOOD PRESSURE: 158/74 MMHG, PULSE OXIMETRY: 98 %. GENERAL NOTES CBG PER PT: 217 PHYSICAL EXAM CONSTITUTIONAL: VITAL SIGNS REVIEWED AND NOTED. WELL DEVELOPED, WELL NOURISHED, AND IN NO ACUTE DISTRESS. ALERT AND ORIENTED X3. RESPIRATORY: EVEN RESPIRATIONS WITHOUT USE OF ACCESSORY MUSCLES. NO INTERCOASTAL RETRACTIONS NOTED. EVEN AND NON LABORED RESPIRATION. INTEGUMENTARY (HAIR, SKIN): NO ERYTHEMA. NO SWELLING OR TENDERNESS. SEE WOUND ASSESSMENT. SKIN WARM AND DRY. NO RASHES. NEUROLOGICAL: DECREASED LOWER EXTREMITY SENSATION. PSYCHIATRIC: ORIENTATION TO TIME, PLACE AND PERSON: NORMAL AFFECT WITH NORMAL THOUGHT PATTERN. ADDITIONAL INFORMATION THE PATIENT'S POTENTIAL TO HEAL IS: FAIR. LOWER EXTREMITY ASSESSMENT ASSESSMENT NOT PERFORMED FOR DOCUMENTED REASONS. EDEMA ASSESSMENT: LEFT EXTREMITY: EDEMA IS NOT PRESENT COMPRESSION DEVICE IN USE: NO RIGHT EXTREMITY: EDEMA IS NOT PRESENT COMPRESSION DEVICE IN USE: NO VASCULAR ASSESSMENT LEFT EXTREMITY COLORS, HAIR GROWTH, AND CONDITIONS: EXTREMITY COLOR: PIGMENTED HAIR GROWTH ON EXTREMITY: NO TEMPERATURE OF EXTREMITY: WARM CAPILARY REFILL: < 3 SECONDS ERYTHEMA: YES RIGHT EXTREMITY COLORS, HAIR GROWTH, AND CONDITIONS: EXTREMITY COLOR: WNL HAIR GROWTH ON EXTREMITY: NO TEMPERATURE OF EXTREMITY: WARM CAPILARY REFILL: < 3 SECONDS ERYTHEMA: NO OFF-LOADING: LEFT OFF-LOADING DEVICE IN USE: YES DEVICE USED CORRECTLY: YES MICHELET NEFF [id number] 1945 OFF-LOADNG DEVICE USED: YES RIGHT OFF-LOADING DEVICE IN USE: NO WOUND ASSESSMENT(S) WOUND #1 LEFT TOE - SECOND IS A CHRONIC COBB GRADE 3 DIABETIC ULCER ACQUIRED ON 03/23/2024 AND HAS RECEIVED A STATUS OF NOT HEALED. INITIAL WOUND ENCOUNTER MEASUREMENTS ARE 0.3CM LENGTH X 0.4CM WIDTH X 0.1 CM DEPTH, WITH AN AREA OF 0.12 SQ CM AND A VOLUME OF 0.012 CUBIC CM.INITIAL WOUND ENCOUNTER PREVIOUS MEASUREMENTS FROM 11/22/2024 ARE 0.4CM LENGTH X 0.3CM WIDTH X 0.1CM DEPTH, WITH AN AREA OF 0.12 SQ CM AND A VOLUME OF 0.012 CUBIC CM. BONE AND ADIPOSE ARE EXPOSED. NO TUNNELING HAS BEEN NOTED. NO SINUS TRACT HAS BEEN NOTED. NO UNDERMINING HAS BEEN NOTED. THERE IS A SMALL AMOUNT OF PURULENT DRAINAGE NOTED WHICH HAS NO ODOR. THE PATIENT REPORTS A WOUND PAIN OF LEVEL 0/10. THE WOUND MARGIN IS ATTACHED WOUND BED HAS NO, GRANULATION, YES SLOUGH, NO ESCHAR, NO EPITHELIALIZATION. THE PERIWOUND SKIN EXHIBITED EDEMA. THE PERIWOUND SKIN DID NOT EXHIBIT BRAWNY INDURATION, EXCORIATION, INDURATION, CALLUS, CREPITUS, FLUCTUANCE, RASH, MACERATION AND ERYTHEMA. THE PERIWOUND SKIN WAS MOIST. THE PERIWOUND SKIN WAS NOT FRIABLE AND DRY/SCALY. THE TEMPERATURE OF THE PERIWOUND SKIN IS WNL. PERIWOUND SKIN DOES NOT EXHIBIT SIGNS OR SYMPTOMS OF INFECTION. LOCAL PULSE IS DOPPLER. GENERAL NOTES PROBES TO BONE. ADDITIONAL INFORMATION OTHER DEVITALIZED TISSUE PRESENT: BIOFILM MADHURI/VASCULAR COMPLETED?: VASCULAR PROCEDURE DONE 10/21/24. ASSESSMENT ACTIVE PROBLEMS ICD-10 (ENCOUNTER DIAGNOSIS) E11.621 - TYPE 2 DIABETES MELLITUS WITH FOOT ULCER (ENCOUNTER DIAGNOSIS) L97.522 - NON-PRESSURE CHRONIC ULCER OF OTHER PART OF LEFT FOOT WITH FAT LAYER EXPOSED (ENCOUNTER DIAGNOSIS) Z86.14 - PERSONAL HISTORY OF METHICILLIN RESISTANT STAPHYLOCOCCUS AUREUS INFECTION (ENCOUNTER DIAGNOSIS) I73.9 - PERIPHERAL VASCULAR DISEASE, UNSPECIFIED GENERAL NOTES ULCER DORSUM OF LEFT 2ND TOE THE FOLLOWING FACTORS HAVE BEEN IDENTIFIED THAT MAY AFFECT WOUND HEALING: DEVITALIZED TISSUE BIOFILM DIABETES NEUROPATHY PAD PRESSURE GOALS: REMOVE DEVITALIZED TISSUE REMOVE AND PREVENT BIOFILM REDUCE PRESSURE PREVENT INFECTION WOUND CLOSURE PLAN: DEBRIDEMENT, WOUND CULTURE OBTAINED TODAY, ORDER MRI LEFT FOOT TO RULE OUT OSTEOMYELITIS, SWITCH TO DRESSING CHANGES WITH SILVER COLLAGEN, SUBMIT FOR USE OF SKIN SUBSTITUTES, FOLLOW UP IN 1 WEEK FOR MICHELET ECHOLS [id number] 1945 RECHECK. START PROTEIN SUPPLEMENTATION, VITAMIN-C, AND ZINC. PROCEDURES WOUND #1 WOUND #1 (DIABETIC ULCER) IS LOCATED ON THE LEFT TOE - SECOND. A SKIN/SUBCUTANEOUS TISSUE LEVEL SURGICAL DEBRIDEMENT WITH A TOTAL AREA DEBRIDED OF 0.12 SQ CM. WAS PERFORMED BY DANIEL TARIQ MD. SUBCUTANEOUS WAS REMOVED ALONG WITH DEVITALIZED TISSUE: BIOFILM AND SLOUGH. THE FOLLOWING INSTRUMENT(S) WERE USED: CURETTE. PAIN CONTROL WAS ACHIEVED USING EMLA LIDOCAINE/PRILOCAINE 2.5%/2.5%. A TIME OUT WAS CONDUCTED PRIOR TO THE START OF THE PROCEDURE. A MINIMAL AMOUNT OF BLEEDING WAS CONTROLLED WITH PRESSURE. THE PROCEDURE WAS TOLERATED WELL WITH A PAIN LEVEL OF 0 THROUGHOUT AND A PAIN LEVEL OF 0 FOLLOWING THE PROCEDURE. POST DEBRIDEMENT MEASUREMENTS: 0.3CM LENGTH X 0.4CM WIDTH X 0.2CM DEPTH; WITH AN AREA OF 0.12 SQ CM AND A VOLUME OF 0.024 CUBIC CM. ADDITIONAL INFORMATION MUSCLE FASCIA OR BONE REMOVED AND SENT TO PATHOLOGY?: NO PLAN WOUND ORDERS: WOUND #1 LEFT TOE - SECOND HAND HYGIENE HAND HYGIENE - WASH HANDS BEFORE AND AFTER WOUND CARE. CALL THE WOUND CENTER AT [phone] IF YOU HAVE SIGNS OR SYMPTOMS OF INFECTION, FEVER CHILLS OR SHAKES, INCREASED DRAINAGE, INCREASED ODOR OR UNUSUAL REDNESS. AFTER WOUND CENTER HOURS PLEASE NOTIFY YOUR PCP OR GO TO THE EMERGENCY ROOM. CLEANSER CLEANSE WOUND WITH NORMAL SALINE CLEANSE WOUND AND MONIKA WOUND WITH A NON-CYTOTOXIC WOUND CLEANSER. - VASHE. PROCEDURE / ANESTHETIC 5% TOPICAL LIDOCAINE TO WOUND BED PRIOR TO PROCEDURE, IN CLINIC ONLY. DRESSING ORDERS APPLY DRESSING(S) AND SECURE WITH: - PURACOL PLUS AG MOISTENED WITH NORMAL SALINE OR DISTILLED WATER. THEN COVER WITH OPTIFOAM (PINK SIDE OUT AWAY FROM SKIN), SECURED WITH TAPE. DRESSING CHANGE FREQUENCY CHANGE DRESSING EVERY OTHER DAY. ADDITIONAL ORDERS: OFF-LOADING / PRESSURE RELIEF USE/WEAR WHEN WALKING: - DIABETIC SHOES. OTHER ORDER: - PREVENT PRESSURE FROM DORSAL FOOT AND DORSAL TOE. DIETARY TAKE VITAMIN C 1000MG BY MOUTH DAILY. TAKE ZINC 25MG BY MOUTH DAILY. INCREASE THE PROTEIN IN YOUR DIET. FOLLOW-UP APPOINTMENTS RETURN APPOINTMENT 2 WEEKS SCRIBING ATTESTATION I ATTEST, THE NURSE, THAT I SCRIBED THESE ORDERS FOR THE WOUND CARE PROVIDER. PROVIDER REVIEW AND ATTESTATION: REVIEWED HOSPITAL RECORDS. DISCUSSED THE PLAN OF CARE @ BEDSIDE WITH - PATIENT AND I AGREE AND ATTEST TO THE ABOVE INFORMATION PROVIDED FROM OTHER LICENSED PROFESSIONALS. ANCILLARY SERVICES: RADIOLOGY: MICHELET NEFF [id number] 1945 MRI - PLEASE CALL TO SCHEDULE MRI AT [facility] IN [place]: [phone]. ORDER WILL BE SENT TODAY. PLAN OF CARE: 01. ENSURE/ESTABLISH OPTIMAL BLOOD FLOW : - COMPLETE LOWER EXTREMITY ASSESSMENT STATUS: CONTINUED DATE: 12/03/2024 - PERFORM NON-INVASIVE VASCULAR TESTING (I.E. MADHURI) AND DOCUMENT FINDINGS. CONSIDER REPEATING WHEN WOUND HEALING <40% AFTER 30 DAYS OF WOUND CARE. STATUS: COMPLETED DATE: 05/29/2024 - ORDER VASCULAR CONSULT FOR EVALUATION/TREATMENT AND/OR NON-INVASIVE VASCULAR TESTING. - [place] VASCULAR ARTERIAL VASCULAR PROCEDURE. STATUS: COMPLETED DATE: 10/21/2024 02. ASSESS FOR/TREAT INFECTION : - EVALUATE FOR SIGNS AND SYMPTOMS OF INFECTION AND DOCUMENT FINDINGS. STATUS: CONTINUED DATE: 12/03/2024 03. DEBRIDE WEEKLY OR MORE OFTEN PRN : - EVALUATE PATIENT IN CENTER WEEKLY TO ASSESS WOUND BED AND MARGINS FOR NEED FOR DEBRIDEMENT. STATUS: CONTINUED DATE: 12/03/2024 - DEBRIDEMENT BY ANY METHOD TO REMOVE DEVITALIZED/NECROTIC TISSUE TO PROMOTE HEALING AND PREVENT FURTHER COMPLICATIONS. GOAL IS TO STIMULATE AND/OR MAINTAIN ACUTE PHASE OF WOUND HEALING BY REDUCING BACTERIAL BURDEN AND DEVITALIZED/NON-VIABLE TISSUE. STATUS: CONTINUED DATE: 12/03/2024 04. OPTIMIZE GLUCOSE CONTROL AND NUTRITION : - ORDER/REVIEW PERTINENT LABS TO EVALUATE RENAL FUNCTION, GLUCOSE CONTROL, AND NUTRITIONAL STATUS. STATUS: CONTINUED DATE: 12/03/2024 05. OFFLOADING PLAN : - EVALUATE PLAN FOR OFFLOADING STATUS: CONTINUED DATE: 12/03/2024 - ADVISE PATIENT TO OFFLOAD THE FOOT ULCER. (I.E. HALF SHOE, SURGICAL SHOE, INSERT, CUSTOM SHOE, FELT AND FOAM, CAM WALKER, MULTIPODUS SPLINT, TOTAL CONTACT CAST, BI-VALVE CAST, POSTERIOR SPLINT). - POST-OP SHOE GIVEN, FOOT DEFENDER ORDERED, EHOB GIVEN STATUS: CONTINUED DATE: 12/03/2024 07. DRESSING SELECTION : - EVALUATE FOR DRESSING-RELATED FACTORS, SUCH AVAILABILITY, WEAR TIME, ADAPTABILITY AND USE TO BETTER OPTIMIZE WOUND HEALING AND PATIENT COMPLIANCE. STATUS: CONTINUED DATE: 12/03/2024 09. FALL PREVENTION : - COMPLETE FALL ASSESSMENT. STATUS: CONTINUED DATE: 12/03/2024 10. PAIN MANAGEMENT : - COMPLETE PAIN ASSESSMENT STATUS: CONTINUED DATE: 12/03/2024 11. MEASURABLE GOALS FOR WOUND HEALING AND/OR HYPERBARIC OXYGEN THERAPY : - DECREASE PAIN STATUS: CONTINUED DATE: 12/03/2024 - DECREASE WOUND DIMENSIONS STATUS: CONTINUED DATE: 12/03/2024 - WOUND CLOSURE STATUS: CONTINUED DATE: 12/03/2024 12. DURATION/FREQUENCY OF WOUND CARE VISITS : MICHELET NEFF [id number] 1945 - 2X MONTHLY FOR NEXT 30 DAYS - IN 2 WEEKS. STATUS: CONTINUED DATE: 12/03/2024 ELECTRONIC SIGNATURE(S) SIGNED BY: DATE: DANIEL TARIQ MD 12/03/2024 16:43:19 (PT) ENTERED BY: DANIEL TARIQ MD ON 12/03/2024 16:42:24 (PT) MICHELET NEFF [id number] 1945
== END ==
PROVIDERS: PCP Internal Medicine; Referring Provider Internal Medicine; Visit Provider Surgery
DX: E11.621 Type 2 diabetes mellitus with foot ulcer (principal); L97.522 Non-pressure chronic ulcer of other part of left foot with fat layer exposed; I73.9 Peripheral vascular disease, unspecified; R60.0 Localized edema; E11.40 Type 2 diabetes mellitus with diabetic neuropathy, unspecified; Z86.14 Personal history of Methicillin resistant Staphylococcus aureus infection
CPT/HCPCS: 11042; 99213

== ENCOUNTER → 2024-12-20 10:50 | Outpatient (CLI) | payer MEDICARE, SELFPAY ==
--- NOTE | 2024-12-20 | OV.WND_ITS ---
PROGRESS NOTE DETAILS PATIENT NAME: MICHELET NEFF PATIENT NUMBER: [id number] CLINICIAN: MEREDITH RAMOS RN PATIENT DATE OF : 1945 PHYSICIAN / SHAPER SETTER: EDI GERARD PA-C PATIENT SUBJECTIVE CHIEF COMPLAINT THIS INFORMATION WAS OBTAINED FROM THE PATIENT. I HAVE THE SAME AMOUNT OF PAIN ( LAST VISIT) GENERAL NOTES DIABETIC ULCER ON LEFT FOOT. ALLERGIES NO KNOWN ALLERGIES HPI THIS INFORMATION WAS OBTAINED FROM THE PATIENT. LOCATION: LEFT 2ND TOE DURATION: 03/23/24 CONTEXT: DFU THE PATIENT IS A 79 YEAR OLD MALE WITH DMT2, HTN, VASCULAR DISEASE, NEUROPATHY RETURNS TODAY FOR FOLLOW UP OF ULCER ON LEFT 2ND TOE. ALL OTHER ULCERS ON THE LEFT FOOT REMAIN HEALED. THE PATIENT ORIGINALLY HAD AN ARTERIAL US SHOWING FULL BLOCKAGE TO POPLITEAL ARTERY AND REDUCED FLOW TO TIBIAL ARTERY. ON June THE PATIENT UNDERWENT VASCULAR INTERVENTION WITH A GRAFT AND STENT AND WAS DISCHARGED HOME ON [place]. HE UNDERWENT ANOTHER REVASCULARIZATION IN OCTOBER. THE PATIENT HAS BEEN RECEIVING DRESSING CHANGES MOST RECENTLY WITH SILVER COLLAGEN. HE IS NOT CURRENTLY ON ANTIBIOTIC THERAPY. HE DENIES FEVERS OR CHILLS. PATIENT'S WOUND HAS BEEN PROBING TO BONE AND HE HAD AN MRI A FEW DAYS AGO BUT WE DO NOT CURRENTLY HAVE RESULTS. PATIENT HAS DECIDED THAT HE WOULD LIKE TO PROCEED WITH TOE AMPUTATION RATHER THAN CONTINUE TREATING IN STANDARD WOUND CARE OR FOLLOWING UP WITH VASCULAR. HE REQUESTS A REFERRAL TO LOCAL SURGICAL TEAM DUE TO TRANSPORTATION DIFFICULTY. ON EXAM TODAY THE ULCER ON THE DORSUM OF THE LEFT 2ND TOE APPEARS TO BE STALLED AND CONTINUES TO EXTEND TO THE BONE. THE TOE IS PINK AND WARM. ALL OTHER ULCERS REMAIN HEALED. HIS INSURANCE HAS APPROVED THE USE OF PURAPLY THE PATIENT DOES NOT WANT TO COME WEEKLY TO THE WOUND CARE CENTER. LABS: 12/18/24: MRI PENDING 10/05/24: CULTURE STAPH AUREUS, RX KEFLEX 10/04/24: XRAY NEGATIVE FOR OSTEOMYELITIS 08/18/24: CULTURE MODERATE STAPH AUREUS, RX KEFLEX 05/29/24: ARTERIAL US COMPLETE OCCLUSION POPLITEAL ARTERY, MINIMAL FLOW WITHIN POSTERIOR TIBIAL ARTERY AND DAMPENED FLOW WITHIN THE ANTERIOR TIBIAL ARTERY DISTAL TO POPLITEAL ARTERY OCCLUSION 05/24/24: CULTURE MRSA, RX DOXYCYCLINE 05/24/24: MADHURI LEFT AND RIGHT PAD 05/10/24: XRAY NEGATIVE FOR OSTEO 05/10/24: A1C 7.4 MICHELET NEFF [id number] 1945 MEDICAL HISTORY THIS INFORMATION WAS OBTAINED FROM THE CHART, PATIENT. PATIENT HAS A MEDICAL HISTORY OF: HYPERTENSION GASTRO ESOPH. 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 YES? COMPLETE ALL QUESTIONS.: NO SURGICAL HISTORY THIS INFORMATION WAS OBTAINED FROM THE PATIENT. PATIENT HAS A SURGICAL HISTORY OF: VASCULAR PROCEDURE- (2023) TURP- (2009) OBJECTIVE VITALS HEIGHT/LENGTH: 67 IN (170.18 CM), WEIGHT: 168.2 LBS (76.45 KGS), BMI: 26.3, TEMPERATURE: 97.7 ?F (36.5 ?C), PULSE: 67 BPM, RESPIRATORY RATE: 16 BREATHS/MIN, BLOOD PRESSURE: 165/91 MMHG, PULSE OXIMETRY: 100 %. GENERAL NOTES CBG PER PT : 164 LAST TIME HE TOOK IT. NOT TODAY. PHYSICAL EXAM CONSTITUTIONAL: GENERALIZED WEAKNESS. IN NO APPARENT DISTRESS. GOOD ATTENTION TO HYGIENE AND BODY HABITS. ALERT AND ORIENTED X 3. WELL NOURISHED. VITAL SIGNS REVIEWED AND NOTED. BLOOD PRESSURE NORMAL. PULSE RATE AND RHYTHM REGULAR. AFEBRILE. WEIGHT WNL. WELL DEVELOPED, WELL NOURISHED, AND IN NO ACUTE DISTRESS. ALERT AND ORIENTED X3. AMBULATES AND IS ABLE TO CHANGE POSITION WITHOUT ASSISTANCE. ALERT AND ORIENTED X 3. RESPIRATORY: EVEN RESPIRATIONS WITHOUT USE OF ACCESSORY MUSCLES. NO INTERCOASTAL RETRACTIONS NOTED. EVEN AND NON LABORED RESPIRATION. CARDIOVASCULAR: SEE LOWER EXTREMITY ASSESSMENT WHEN APPLICABLE. THERE IS NO PERIPHERAL EDEMA, CYANOSIS OR PALLOR. MICHELET NEFF [id number] 1945 EXTREMITIES ARE WARM AND WELL PERFUSED. CAPILLARY REFILL IS LESS THAN 2 SECONDS. INTEGUMENTARY (HAIR, SKIN): SEE WOUND DESCRIPTION. NEUROLOGICAL: DECREASED LOWER EXTREMITY SENSATION. PSYCHIATRIC: ORIENTATION TO TIME, PLACE AND PERSON: NORMAL AFFECT WITH NORMAL THOUGHT PATTERN. MOOD AND AFFECT: NORMAL AFFECT WITH NORMAL THOUGHT PATTERN. WOUND ASSESSMENT(S) WOUND #1 LEFT TOE - SECOND IS A CHRONIC COBB GRADE 3 DIABETIC ULCER ACQUIRED ON 03/23/2024 AND HAS RECEIVED A STATUS OF NOT HEALED. INITIAL WOUND ENCOUNTER MEASUREMENTS ARE 0.4CM LENGTH X 0.4CM WIDTH X 0.1 CM DEPTH, WITH AN AREA OF 0.16 SQ CM AND A VOLUME OF 0.016 CUBIC CM.INITIAL WOUND ENCOUNTER PREVIOUS MEASUREMENTS FROM 12/03/2024 ARE 0.3CM LENGTH X 0.4CM WIDTH X 0.1CM DEPTH, WITH AN AREA OF 0.12 SQ CM AND A VOLUME OF 0.012 CUBIC CM. BONE AND ADIPOSE ARE EXPOSED. NO TUNNELING HAS BEEN NOTED. NO SINUS TRACT HAS BEEN NOTED. NO UNDERMINING HAS BEEN NOTED. THERE IS A SMALL AMOUNT OF SEROSANGUINEOUS DRAINAGE NOTED WHICH HAS NO ODOR. THE PATIENT REPORTS A WOUND PAIN OF LEVEL 0/10. THE WOUND MARGIN IS ATTACHED WOUND BED HAS NO, GRANULATION, YES SLOUGH, NO ESCHAR, NO EPITHELIALIZATION. THE PERIWOUND SKIN EXHIBITED EDEMA. THE PERIWOUND SKIN DID NOT EXHIBIT BRAWNY INDURATION, EXCORIATION, INDURATION, CALLUS, CREPITUS, FLUCTUANCE, RASH, MACERATION AND ERYTHEMA. THE PERIWOUND SKIN WAS FRIABLE AND MOIST. THE PERIWOUND SKIN WAS NOT DRY/SCALY. THE TEMPERATURE OF THE PERIWOUND SKIN IS WNL. PERIWOUND SKIN DOES NOT EXHIBIT SIGNS OR SYMPTOMS OF INFECTION. LOCAL PULSE IS DOPPLER. GENERAL NOTES PROBES TO BONE. ADDITIONAL INFORMATION OTHER DEVITALIZED TISSUE PRESENT: BIOFILM MADHURI/VASCULAR COMPLETED?: VASCULAR PROCEDURE DONE 10/21/24. ASSESSMENT ACTIVE PROBLEMS ICD-10 (ENCOUNTER DIAGNOSIS) E11.621 - TYPE 2 DIABETES MELLITUS WITH FOOT ULCER (ENCOUNTER DIAGNOSIS) L97.522 - NON-PRESSURE CHRONIC ULCER OF OTHER PART OF LEFT FOOT WITH FAT LAYER EXPOSED (ENCOUNTER DIAGNOSIS) Z86.14 - PERSONAL HISTORY OF METHICILLIN RESISTANT STAPHYLOCOCCUS AUREUS INFECTION (ENCOUNTER DIAGNOSIS) I73.9 - PERIPHERAL VASCULAR DISEASE, UNSPECIFIED PROCEDURES WOUND #1 WOUND #1 (DIABETIC ULCER) IS LOCATED ON THE LEFT TOE - SECOND. A SKIN/SUBCUTANEOUS TISSUE LEVEL SURGICAL DEBRIDEMENT WITH A TOTAL AREA DEBRIDED OF 0.16 SQ CM. WAS PERFORMED BY EDI GERARD PA-C. SUBCUTANEOUS WAS REMOVED ALONG WITH DEVITALIZED TISSUE: BIOFILM, EXUDATE AND SLOUGH. THE FOLLOWING INSTRUMENT(S) WERE USED: CURETTE. PAIN CONTROL WAS ACHIEVED USING EMLA LIDOCAINE/PRILOCAINE 2.5%/2.5%. A TIME OUT WAS CONDUCTED PRIOR TO THE START OF THE PROCEDURE. A MINIMAL AMOUNT OF BLEEDING WAS CONTROLLED WITH PRESSURE. THE PROCEDURE WAS TOLERATED WELL WITH A PAIN LEVEL OF 0 THROUGHOUT AND A PAIN LEVEL OF 0 FOLLOWING THE PROCEDURE. POST DEBRIDEMENT MEASUREMENTS: 0.4CM LENGTH X 0.4CM WIDTH X 0.2CM DEPTH; WITH AN AREA OF 0.16 SQ CM AND A VOLUME OF 0.032 CUBIC CM. ADDITIONAL INFORMATION MICHELET NEFF [id number] 1945 MUSCLE FASCIA OR BONE REMOVED AND SENT TO PATHOLOGY?: NO PLAN RECORDS REQUESTED FOR MRI RESULT REFERRAL TO [facility]TH[facility] FOR CONSULT RE AMPUTATION RX SENT FOR DOXYCYCLINE D/T CELLULITIS, RISK OF OSTEO RETURN TO WOUND CLINIC IN TWO WEEKS OR AFTER DISCHARGE FROM ORTHO PLAN WOUND ORDERS: WOUND #1 LEFT TOE - SECOND HAND HYGIENE HAND HYGIENE - WASH HANDS BEFORE AND AFTER WOUND CARE. CALL THE WOUND CENTER AT [phone] IF YOU HAVE SIGNS OR SYMPTOMS OF INFECTION, FEVER CHILLS OR SHAKES, INCREASED DRAINAGE, INCREASED ODOR OR UNUSUAL REDNESS. AFTER WOUND CENTER HOURS PLEASE NOTIFY YOUR PCP OR GO TO THE EMERGENCY ROOM. CLEANSER CLEANSE WOUND WITH NORMAL SALINE CLEANSE WOUND AND MONIKA WOUND WITH A NON-CYTOTOXIC WOUND CLEANSER. - VASHE. PROCEDURE / ANESTHETIC 5% TOPICAL LIDOCAINE TO WOUND BED PRIOR TO PROCEDURE, IN CLINIC ONLY. DRESSING ORDERS APPLY DRESSING(S) AND SECURE WITH: - PURACOL PLUS AG MOISTENED WITH NORMAL SALINE OR DISTILLED WATER. THEN COVER WITH OPTIFOAM (PINK SIDE OUT AWAY FROM SKIN), SECURED WITH TAPE. DRESSING CHANGE FREQUENCY CHANGE DRESSING EVERY OTHER DAY. ADDITIONAL ORDERS: OFF-LOADING / PRESSURE RELIEF USE/WEAR WHEN WALKING: - DIABETIC SHOES. OTHER ORDER: - PREVENT PRESSURE FROM DORSAL FOOT AND DORSAL TOE. DIETARY TAKE VITAMIN C 1000MG BY MOUTH DAILY. TAKE ZINC 25MG BY MOUTH DAILY. INCREASE THE PROTEIN IN YOUR DIET. FOLLOW-UP APPOINTMENTS RETURN APPOINTMENT 2 WEEKS OTHER ORDERS: - YOU HAVE BEEN PRESCRIBED ANTIBIOTICS, PLEASE PICK THEM UP AND START TAKING THEM. THANK YOU. SCRIBING ATTESTATION I ATTEST, THE NURSE, THAT I SCRIBED THESE ORDERS FOR THE WOUND CARE PROVIDER. PROVIDER REVIEW AND ATTESTATION: REVIEWED HOSPITAL RECORDS. DISCUSSED THE PLAN OF CARE @ BEDSIDE WITH - PATIENT AND I AGREE AND ATTEST TO THE ABOVE INFORMATION PROVIDED FROM OTHER LICENSED PROFESSIONALS. ANCILLARY SERVICES: PHYSICIAN CONSULTS: OTHER PHYSICIAN REFERRAL - YOU HAVE BEEN REFERRED TO [facility] FOR AN AMPUTATION. IF THEY DO NOT CALL YOU IN A FEW DAYS, PLEASE CALL THEM AT . MICHELET NEFF [id number] 1945 MEDICATIONS PRESCRIBED: DOXYCYCLINE MONOHYDRATE - ORAL 100 MG TABLET TWICE DAILY FOR 10 DAYS STARTING 12/20/2024 PLAN OF CARE: 01. ENSURE/ESTABLISH OPTIMAL BLOOD FLOW : - COMPLETE LOWER EXTREMITY ASSESSMENT STATUS: CONTINUED DATE: 12/03/2024 - PERFORM NON-INVASIVE VASCULAR TESTING (I.E. MADHURI) AND DOCUMENT FINDINGS. CONSIDER REPEATING WHEN WOUND HEALING <40% AFTER 30 DAYS OF WOUND CARE. STATUS: COMPLETED DATE: 05/29/2024 - ORDER VASCULAR CONSULT FOR EVALUATION/TREATMENT AND/OR NON-INVASIVE VASCULAR TESTING. - [facility] VASCULAR ARTERIAL VASCULAR PROCEDURE. STATUS: COMPLETED DATE: 10/21/2024 02. ASSESS FOR/TREAT INFECTION : - EVALUATE FOR SIGNS AND SYMPTOMS OF INFECTION AND DOCUMENT FINDINGS. STATUS: CONTINUED DATE: 12/03/2024 03. DEBRIDE WEEKLY OR MORE OFTEN PRN : - EVALUATE PATIENT IN CENTER WEEKLY TO ASSESS WOUND BED AND MARGINS FOR NEED FOR DEBRIDEMENT. STATUS: CONTINUED DATE: 12/03/2024 - DEBRIDEMENT BY ANY METHOD TO REMOVE DEVITALIZED/NECROTIC TISSUE TO PROMOTE HEALING AND PREVENT FURTHER COMPLICATIONS. GOAL IS TO STIMULATE AND/OR MAINTAIN ACUTE PHASE OF WOUND HEALING BY REDUCING BACTERIAL BURDEN AND DEVITALIZED/NON-VIABLE TISSUE. STATUS: CONTINUED DATE: 12/03/2024 04. OPTIMIZE GLUCOSE CONTROL AND NUTRITION : - ORDER/REVIEW PERTINENT LABS TO EVALUATE RENAL FUNCTION, GLUCOSE CONTROL, AND NUTRITIONAL STATUS. STATUS: CONTINUED DATE: 12/03/2024 05. OFFLOADING PLAN : - EVALUATE PLAN FOR OFFLOADING STATUS: CONTINUED DATE: 12/03/2024 - ADVISE PATIENT TO OFFLOAD THE FOOT ULCER. (I.E. HALF SHOE, SURGICAL SHOE, INSERT, CUSTOM SHOE, FELT AND FOAM, CAM WALKER, MULTIPODUS SPLINT, TOTAL CONTACT CAST, BI-VALVE CAST, POSTERIOR SPLINT). - POST-OP SHOE GIVEN, FOOT DEFENDER ORDERED, EHOB GIVEN STATUS: CONTINUED DATE: 12/03/2024 07. DRESSING SELECTION : - EVALUATE FOR DRESSING-RELATED FACTORS, SUCH AVAILABILITY, WEAR TIME, ADAPTABILITY AND USE TO BETTER OPTIMIZE WOUND HEALING AND PATIENT COMPLIANCE. STATUS: CONTINUED DATE: 12/03/2024 09. FALL PREVENTION : - COMPLETE FALL ASSESSMENT. STATUS: CONTINUED DATE: 12/03/2024 10. PAIN MANAGEMENT : - COMPLETE PAIN ASSESSMENT STATUS: CONTINUED DATE: 12/03/2024 11. MEASURABLE GOALS FOR WOUND HEALING AND/OR HYPERBARIC OXYGEN THERAPY : - DECREASE PAIN STATUS: CONTINUED DATE: 12/03/2024 - DECREASE WOUND DIMENSIONS STATUS: CONTINUED DATE: 12/03/2024 - WOUND CLOSURE STATUS: CONTINUED DATE: 12/03/2024 MICHELET NEFF [id number] 1945 12. DURATION/FREQUENCY OF WOUND CARE VISITS : - 2X MONTHLY FOR NEXT 30 DAYS - IN 2 WEEKS. STATUS: CONTINUED DATE: 12/03/2024 ELECTRONIC SIGNATURE(S) SIGNED BY: DATE: EDI GERARD PA-C 12/20/2024 14:16:54 (PT) ENTERED BY: EDI GERARD PA-C ON 12/20/2024 14:16:38 (PT) MICHELET NEFF [id number] 1945
== END ==
PROVIDERS: PCP Internal Medicine; Referring Provider Internal Medicine; Visit Provider Physician Assistant
DX: E11.621 Type 2 diabetes mellitus with foot ulcer (principal); L97.526 Non-pressure chronic ulcer of other part of left foot with bone involvement without evidence of necrosis; I73.9 Peripheral vascular disease, unspecified; R60.0 Localized edema; Z86.14 Personal history of Methicillin resistant Staphylococcus aureus infection
CPT/HCPCS: 11042; 99214

== ENCOUNTER → 2025-01-06 10:56 | Outpatient (CLI) | payer MEDICARE, SELFPAY | PROVIDERS: PCP Internal Medicine; Referring Provider Internal Medicine; Visit Provider Surgery | DX: E11.621 Type 2 diabetes mellitus with foot ulcer (principal); L97.522 Non-pressure chronic ulcer of other part of left foot with fat layer exposed; Z86.14 Personal history of Methicillin resistant Staphylococcus aureus infection; I73.9 Peripheral vascular disease, unspecified | CPT/HCPCS: 11042; 99213 ==

== ENCOUNTER → 2025-01-20 10:52 | Outpatient (CLI) | payer MEDICARE, SELFPAY | LOC: WC 10:53 | PROVIDERS: PCP Internal Medicine; Referring Provider Internal Medicine; Visit Provider Surgery | DX: Z86.31 Personal history of diabetic foot ulcer (principal); Z86.14 Personal history of Methicillin resistant Staphylococcus aureus infection; I73.9 Peripheral vascular disease, unspecified | CPT/HCPCS: 99212; 99213 ==